=== PATIENT | male | born 1940 | race Caucasian/White ===

== ENCOUNTER 2016-12-21 18:23 | Emergency (ER) | payer OTHER, MEDICAID ==
[~2016-12-21] VITALS: Ht 167.6 cm; Wt 60.8 kg
[2016-12-21 18:31] VITALS: BP_SYST 121
--- NOTE | 2016-12-21 18:31 | NUR ---
Pt in waiting room awaiting available bed. Stable.
[2016-12-21] MEDS ORDERED: DIPH-TET Vacc 0.5 ML VIAL I.M. ONE (19:00)
--- NOTE | 2016-12-21 19:16 | NUR ---
Patient to room 6 from radiology.
--- NOTE | 2016-12-21 19:20 | NUR ---
Patient brought to ER by caregiver s/p mechanical fall with 1 cm laceration to posterior patietal, no bleeding noted now. Patient is wheelchair bound and hx or MR. Patient denies head/neck/chest pain, AAOx2, cooperative, calm, unlabored breathing, lower extremities +1 pitting edema, no signs of acute distress.
[2016-12-21] MEDS ORDERED: BACITRACIN 1 GM OINT TP ONE (19:30)
--- NOTE | 2016-12-21 19:36 | NUR ---
ER RENETTA Prater at bedside for evaluation
[2016-12-21 19:55] LABS: BILIRUBIN,URINE NEGATIVE (NEGATIVE); CLARITY/URINE CLEAR (CLEAR); COLOR,URINE YELLOW (YELLOW); GLUCOSE,URINE NEGATIVE (NEGATIVE); KETONES,URINE NEGATIVE (NEGATIVE); LEUKOCYTE ESTERASE ,URINE NEGATIVE (NEGATIVE); NITRITE, URINE NEGATIVE (NEGATIVE); PH,URINE 6.5 (5.0-8.0); PROTEIN URINE NEGATIVE (NEGATIVE); UROBILINOGEN,URINE 0.2 (0.2-1.0)
[2016-12-21 19:58] LABS: INR 1.1 (0.80-1.20); PROTHROMBIN TIME 11.9 SECS (9.5-12.5)
[2016-12-21 20:06] LABS: BASOPHILS % (AUTO) 0.5 % (0.0-2.0); EOSINOPHILS # (AUTO) 0.1 K/uL (0.0-0.4); EOSINOPHILS % (AUTO) 1.1 % (0.0-4.0); HEMATOCRIT 38.9 % (36-54); HEMOGLOBIN 12.7 g/dL (14.0-18.0); LYMPHOCYTES # (AUTO) 1.7 K/uL (1.0-5.5); LYMPHOCYTES % (AUTO) 27.7 % (20.5-51.5); MEAN CORPUSCULAR HEMOGLOBIN 31 pg (27-31); MEAN CORPUSCULAR HGB CONC 33 % (32-36); MEAN CORPUSCULAR VOLUME 93 fL (79.0-98.0); MONOCYTES # (AUTO) 0.8 K/uL (0.0-1.0); MONOCYTES % (AUTO) 12.5 % (1.7-9.3); NEUTROPHILS # (AUTO) 3.7 K/uL (1.8-7.7); NEUTROPHILS % (AUTO) 58.2 % (40.0-70.0); PLATELET COUNT (AUTO) 212 K/uL (130-430); RED BLOOD CELL COUNT(AUTO) 4.17 MIL/uL (4.2-6.2); RED CELL DISTRIBUTION WIDTH 13.7 % (9.0-15.0); WHITE BLOOD COUNT (AUTO) 6.3 K/uL (4.8-10.8)
[2016-12-21 20:08] LABS: BLOOD, URINE TRACE (NEGATIVE)
[2016-12-21 20:09] LABS: ANION GAP 5 (5-15); CALCIUM 10.7 mg/dL (8.4-11.0); CHLORIDE 107 mmol/L (98-107); CREATININE 1.53 mg/dL (0.55-1.30); GLUCOSE 132 mg/dL (70-99); POTASSIUM 4.4 mmol/L (3.5-5.1); SODIUM SERUM 139 mmol/L (136-145); UREA NITROGEN, BLOOD 31 mg/dL (8-21)
[2016-12-21 20:11] LABS: BACTERIA,URINE FEW /HPF (None Seen); RBC,URINE 0-3 /HPF (0-3); WBC,URINE 0-3 /HPF (0-3)
[2016-12-21 20:12] LABS: MUCUS,URINE None Seen /LPF (None Seen)
[2016-12-21 20:13] LABS: ALANINE AMINOTRANSFERASE 18 U/L (12-78); ALBUMIN 3.3 g/dL (3.4-4.8); ASPARTATE AMINOTRANSFERASE 16 U/L (10-37); TOTAL BILIRUBIN 0.3 mg/dL (0.0-1.0); TOTAL PROTEIN, SERUM 7.7 g/dL (6.4-8.3)
--- NOTE | 2016-12-21 20:15 | NUR ---
Scanner not working for med scan. patient and meds verified.
--- NOTE | 2016-12-21 20:16 | NUR ---
Patient has a 2 cm laceration to posterior scalp. TANK PROCESSOR Josi applied patrick using sterile technique. Edges well approximated. Site cleansed with NS & iodine. Dressing of gauze applied to site. No bleeding noted. Pt tolerated well.
[2016-12-21 20:40] VITALS: BP_SYST 119
--- NOTE | 2016-12-21 20:40 | NUR ---
Patient given written and verbal discharge instructions and verbalizes understanding. ER INDUSTRIAL HYGIENE ENGINEER Josi discussed with patient the results and treatment provided. Patient in stable condition. ID arm band removed. Rx of bacitracin given. Patient educated on pain management and to follow up with PMD. Pain Scale 0/10. Opportunity for questions provided and answered.
== END 2016-12-21 20:40 | disposition home or self-care (01) ==
LOC: SED 18:23
DX: S01.01XA Laceration without foreign body of scalp, initial encounter (principal); I10 Essential (primary) hypertension; M19.90 Unspecified osteoarthritis, unspecified site; H40.9 Unspecified glaucoma; W18.30XA Fall on same level, unspecified, initial encounter; Y93.01 Activity, walking, marching and hiking; Y92.89 Other specified places as the place of occurrence of the external cause; Y99.8 Other external cause status
CPT/HCPCS: 36415; 70450-TC; 71010; 80053; 81000-TC; 84484; 85025; 85610-TC; 85730-TC; 90714; 93005; 99285

== ENCOUNTER 2016-12-28 17:40 | Emergency (ER) | payer OTHER, MEDICAID ==
[~2016-12-28] VITALS: Ht 167.6 cm; Wt 81.6 kg
[2016-12-28 17:55] VITALS: BP_SYST 135
[2016-12-28] MEDS ORDERED: BACITRACIN 1 GM OINT TP ONE (18:00)
[2016-12-28 18:22] VITALS: BP_SYST 132
== END 2016-12-28 18:22 | disposition home or self-care (01) ==
LOC: SED 17:40
DX: S01.01XD Laceration without foreign body of scalp, subsequent encounter (principal); I10 Essential (primary) hypertension; M19.90 Unspecified osteoarthritis, unspecified site; M81.0 Age-related osteoporosis without current pathological fracture; H40.9 Unspecified glaucoma; Z98.890 Other specified postprocedural states; X58.XXXD Exposure to other specified factors, subsequent encounter; Y92.89 Other specified places as the place of occurrence of the external cause; Y99.8 Other external cause status
CPT/HCPCS: 99281

== ENCOUNTER 2017-01-07 07:16 | Inpatient (IN) | payer OTHER, MEDICAID ==
[~2017-01-07] VITALS: Ht 167.6 cm; Wt 61.2 kg
[2017-01-07 07:16] VITALS: BP_SYST 142
[2017-01-07] MEDS ORDERED: BACITRACIN 1 GM OINT TP ONE (07:45)
[2017-01-07] MEDS ORDERED: LIDOCAINE/EPI 1% 1:100000 20 ML VIAL IJ ONE (07:45)
[2017-01-07] MEDS ORDERED: LIDOCAINE/EPI 2% 1:100000 20 ML VIAL INJ ONE (08:16)
[2017-01-07 09:00] LABS: BASOPHILS % (AUTO) 0.5 % (0.0-2.0); EOSINOPHILS # (AUTO) 0.1 K/uL (0.0-0.4); EOSINOPHILS % (AUTO) 0.8 % (0.0-4.0); HEMATOCRIT 39.3 % (36-54); HEMOGLOBIN 13.1 g/dL (14.0-18.0); LYMPHOCYTES # (AUTO) 1.7 K/uL (1.0-5.5); LYMPHOCYTES % (AUTO) 24.7 % (20.5-51.5); MEAN CORPUSCULAR HEMOGLOBIN 31 pg (27-31); MEAN CORPUSCULAR HGB CONC 33 % (32-36); MEAN CORPUSCULAR VOLUME 92 fL (79.0-98.0); MONOCYTES # (AUTO) 0.8 K/uL (0.0-1.0); MONOCYTES % (AUTO) 11.6 % (1.7-9.3); NEUTROPHILS # (AUTO) 4.3 K/uL (1.8-7.7); NEUTROPHILS % (AUTO) 62.4 % (40.0-70.0); PLATELET COUNT (AUTO) 189 K/uL (130-430); RED BLOOD CELL COUNT(AUTO) 4.25 MIL/uL (4.2-6.2); RED CELL DISTRIBUTION WIDTH 13.6 % (9.0-15.0); WHITE BLOOD COUNT (AUTO) 6.9 K/uL (4.8-10.8)
[2017-01-07 09:25] LABS: ANION GAP 3 (5-15); CALCIUM 10.3 mg/dL (8.4-11.0); CHLORIDE 107 mmol/L (98-107); CREATININE 1.48 mg/dL (0.55-1.30); GLUCOSE 78 mg/dL (70-99); SODIUM SERUM 137 mmol/L (136-145); UREA NITROGEN, BLOOD 29 mg/dL (8-21)
[2017-01-07 09:27] LABS: INR 1.1 (0.80-1.20); PROTHROMBIN TIME 11.9 SECS (9.5-12.5)
[2017-01-07 09:29] LABS: ALANINE AMINOTRANSFERASE 16 U/L (12-78); ALBUMIN 3.1 g/dL (3.4-4.8); ASPARTATE AMINOTRANSFERASE 13 U/L (10-37); TOTAL BILIRUBIN 0.3 mg/dL (0.0-1.0)
[2017-01-07] MEDS ORDERED: LIDOCAINE/EPI 2% 1:100000 20 ML VIAL IJ ONE (09:30)
[2017-01-07 11:00] VITALS: BP_SYST 148
[2017-01-07 12:22] VITALS: BP_SYST 148
[2017-01-07 16:00] VITALS: BP_SYST 140
[2017-01-07 19:30] VITALS: BP_SYST 144
[2017-01-07] MEDS ORDERED: TRAM50TA92 PO (19:43)
[2017-01-07] MEDS ORDERED: POTA-118 PO (19:51)
[2017-01-07] MEDS ORDERED: RISP0.2515 PO (19:51)
[2017-01-07] MEDS ORDERED: DOCU-144 PO (19:51)
[2017-01-07] MEDS ORDERED: BACL10TA PO (19:51)
[2017-01-07] MEDS ORDERED: OMEP20CA10 PO (20:01)
[2017-01-07] MEDS ORDERED: FURO-150 PO (20:01)
[2017-01-07] MEDS ORDERED: RISP0.253 PO (23:05)
[2017-01-08] VITALS: BP_SYST 158
[2017-01-08 04:33] VITALS: BP_SYST 140
[2017-01-08 07:20] LABS: BASOPHILS % (AUTO) 0.4 % (0.0-2.0); EOSINOPHILS # (AUTO) 0.1 K/uL (0.0-0.4); EOSINOPHILS % (AUTO) 1.2 % (0.0-4.0); HEMATOCRIT 38.7 % (36-54); HEMOGLOBIN 13.1 g/dL (14.0-18.0); LYMPHOCYTES % (AUTO) 34.8 % (20.5-51.5); MEAN CORPUSCULAR HEMOGLOBIN 31 pg (27-31); MEAN CORPUSCULAR HGB CONC 34 % (32-36); MEAN CORPUSCULAR VOLUME 92 fL (79.0-98.0); MONOCYTES # (AUTO) 0.7 K/uL (0.0-1.0); NEUTROPHILS % (AUTO) 50.6 % (40.0-70.0); PLATELET COUNT (AUTO) 190 K/uL (130-430); RED BLOOD CELL COUNT(AUTO) 4.23 MIL/uL (4.2-6.2); RED CELL DISTRIBUTION WIDTH 13.8 % (9.0-15.0); WHITE BLOOD COUNT (AUTO) 5.8 K/uL (4.8-10.8)
[2017-01-08 08:00] VITALS: BP_SYST 171
[2017-01-08 08:07] LABS: POTASSIUM 4.1 mmol/L (3.5-5.1); SODIUM SERUM 137 mmol/L (136-145)
[2017-01-08 08:08] LABS: ALANINE AMINOTRANSFERASE 16 U/L (12-78); ANION GAP 5 (5-15); ASPARTATE AMINOTRANSFERASE 16 U/L (10-37); CALCIUM 10.4 mg/dL (8.4-11.0); CHLORIDE 106 mmol/L (98-107); CREATININE 1.52 mg/dL (0.55-1.30); GLUCOSE 90 mg/dL (70-99); TOTAL BILIRUBIN 0.4 mg/dL (0.0-1.0); TOTAL PROTEIN, SERUM 7.3 g/dL (6.4-8.3); UREA NITROGEN, BLOOD 33 mg/dL (8-21)
[2017-01-08] MEDS: traMADol HCL HCL 50 MG TABLET (ULTRAM) PO SCH ×3 (09:02→21:18)
[2017-01-08] MEDS: BACLOFEN 10 MG TABLET PO SCH ×3 (09:02→21:16)
[2017-01-08 12:07] VITALS: BP_SYST 151
[2017-01-08 16:43] VITALS: BP_SYST 150
[2017-01-08 20:02] VITALS: BP_SYST 144
[2017-01-08] MEDS ORDERED: traMADol HCL HCL 50 MG TABLET (ULTRAM) PO SCH ×2 (21:00)
[2017-01-08] MEDS ORDERED: risperiDONE 0.25 MG TABLET (RisperDAL) PO SCH ×2 (21:00)
[2017-01-08] MEDS: DOCUSATE SODIUM 100 MG CAPSULE PO SCH (21:16)
[2017-01-08] MEDS: risperiDONE 0.25 MG TABLET (RisperDAL) PO SCH (21:16)
[2017-01-09] VITALS (7 sets, daily range): BP systolic 130–167
[2017-01-09] MEDS: OMEPRAZOLE 20 MG CAPSULE.DR (PriLOSEC) PO SCH (09:51)
[2017-01-09] MEDS: traMADol HCL HCL 50 MG TABLET (ULTRAM) PO SCH ×3 (09:53→21:48)
[2017-01-09] MEDS: POTASSIUM CHLORIDE 10 MEQ TAB.PRT.SR PO SCH (09:54)
[2017-01-09] MEDS: FUROSEMIDE 20 MG TABLET PO SCH (09:54)
[2017-01-09] MEDS: DOCUSATE SODIUM 100 MG CAPSULE PO SCH ×2 (09:54→21:47)
[2017-01-09] MEDS: BACLOFEN 10 MG TABLET PO SCH ×3 (09:54→21:47)
[2017-01-09] MEDS ORDERED: METOPROLOL TARTRATE 25 MG TABLET PO ONE (13:45)
[2017-01-09] MEDS: risperiDONE 0.25 MG TABLET (RisperDAL) PO SCH (22:21)
[2017-01-09] MEDS: METOPROLOL TARTRATE 25 MG TABLET PO SCH (22:22)
[2017-01-10] VITALS (7 sets, daily range): BP systolic 133–171
[2017-01-10] MEDS: MORPHINE 2 MG/ML INJ. SYRINGE IVP PRN ×3 (02:28→19:59)
[2017-01-10 06:28] LABS: BASOPHILS # (AUTO) 0.1 K/uL (0.0-0.2); BASOPHILS % (AUTO) 1.2 % (0.0-2.0); EOSINOPHILS # (AUTO) 0.1 K/uL (0.0-0.4); EOSINOPHILS % (AUTO) 0.7 % (0.0-4.0); HEMOGLOBIN 14.1 g/dL (14.0-18.0); LYMPHOCYTES # (AUTO) 1.7 K/uL (1.0-5.5); LYMPHOCYTES % (AUTO) 20.2 % (20.5-51.5); MEAN CORPUSCULAR HEMOGLOBIN 30 pg (27-31); MEAN CORPUSCULAR HGB CONC 32 % (32-36); MEAN CORPUSCULAR VOLUME 94 fL (79.0-98.0); MONOCYTES # (AUTO) 1.2 K/uL (0.0-1.0); MONOCYTES % (AUTO) 14.2 % (1.7-9.3); NEUTROPHILS # (AUTO) 5.4 K/uL (1.8-7.7); NEUTROPHILS % (AUTO) 63.7 % (40.0-70.0); PLATELET COUNT (AUTO) 193 K/uL (130-430); RED CELL DISTRIBUTION WIDTH 13.9 % (9.0-15.0); WHITE BLOOD COUNT (AUTO) 8.5 K/uL (4.8-10.8)
[2017-01-10 07:19] LABS: ALANINE AMINOTRANSFERASE 17 U/L (12-78); ANION GAP 5 (5-15); ASPARTATE AMINOTRANSFERASE 14 U/L (10-37); CALCIUM 10.7 mg/dL (8.4-11.0); CHLORIDE 106 mmol/L (98-107); CREATININE 1.34 mg/dL (0.55-1.30); GLUCOSE 96 mg/dL (70-99); POTASSIUM 4.3 mmol/L (3.5-5.1); SODIUM SERUM 136 mmol/L (136-145); THYROID STIMULATING HORMONE 3.27 uIu/mL (0.34-4.82); TOTAL BILIRUBIN 0.6 mg/dL (0.0-1.0); TOTAL PROTEIN, SERUM 7.9 g/dL (6.4-8.3); UREA NITROGEN, BLOOD 31 mg/dL (8-21)
[2017-01-10] MEDS: DOCUSATE SODIUM 100 MG CAPSULE PO SCH ×2 (08:32→20:50)
[2017-01-10] MEDS: BACLOFEN 10 MG TABLET PO SCH ×3 (08:32→20:49)
[2017-01-10] MEDS: traMADol HCL HCL 50 MG TABLET (ULTRAM) PO SCH ×3 (08:32→20:52)
[2017-01-10] MEDS: POTASSIUM CHLORIDE 10 MEQ TAB.PRT.SR PO SCH (08:32)
[2017-01-10] MEDS: OMEPRAZOLE 20 MG CAPSULE.DR (PriLOSEC) PO SCH (08:32)
[2017-01-10] MEDS: METOPROLOL TARTRATE 25 MG TABLET PO SCH ×2 (08:33→20:51)
[2017-01-10] MEDS: FUROSEMIDE 20 MG TABLET PO SCH (08:33)
[2017-01-10] MEDS: risperiDONE 0.25 MG TABLET (RisperDAL) PO SCH (20:51)
[2017-01-10] MEDS ORDERED: LORazepam 1 MG TABLET PO PRN (23:30)
[2017-01-11 00:10] VITALS: BP_SYST 135
[2017-01-11] MEDS: MORPHINE 2 MG/ML INJ. SYRINGE IVP PRN (00:23)
[2017-01-11 03:56] VITALS: BP_SYST 126
[2017-01-11] MEDS: FUROSEMIDE 20 MG TABLET PO SCH (10:28)
[2017-01-11] MEDS: BACLOFEN 10 MG TABLET PO SCH ×3 (10:29→21:12)
[2017-01-11] MEDS: OMEPRAZOLE 20 MG CAPSULE.DR (PriLOSEC) PO SCH (10:29)
[2017-01-11] MEDS: DOCUSATE SODIUM 100 MG CAPSULE PO SCH ×2 (10:29→21:12)
[2017-01-11] MEDS: METOPROLOL TARTRATE 25 MG TABLET PO SCH ×2 (10:29→21:00)
[2017-01-11 12:14] VITALS: BP_SYST 144
[2017-01-11] MEDS: traMADol HCL HCL 50 MG TABLET (ULTRAM) PO SCH ×3 (16:02→21:12)
[2017-01-11] MEDS: POTASSIUM CHLORIDE 10 MEQ TAB.PRT.SR PO SCH (16:06)
[2017-01-11 16:43] VITALS: BP_SYST 140
[2017-01-11 21:05] VITALS: BP_SYST 96
[2017-01-11] MEDS: risperiDONE 0.25 MG TABLET (RisperDAL) PO SCH (21:12)
[2017-01-12] VITALS: BP_SYST 96
[2017-01-12 04:26] VITALS: BP_SYST 100
[2017-01-12 07:21] LABS: BASOPHILS % (AUTO) 0.4 % (0.0-2.0); EOSINOPHILS % (AUTO) 0.2 % (0.0-4.0); HEMATOCRIT 44.4 % (36-54); HEMOGLOBIN 14.2 g/dL (14.0-18.0); LYMPHOCYTES # (AUTO) 1.8 K/uL (1.0-5.5); MEAN CORPUSCULAR HEMOGLOBIN 30 pg (27-31); MEAN CORPUSCULAR HGB CONC 32 % (32-36); MEAN CORPUSCULAR VOLUME 94 fL (79.0-98.0); MONOCYTES # (AUTO) 1.4 K/uL (0.0-1.0); MONOCYTES % (AUTO) 12.9 % (1.7-9.3); NEUTROPHILS # (AUTO) 7.9 K/uL (1.8-7.7); NEUTROPHILS % (AUTO) 70.5 % (40.0-70.0); PLATELET COUNT (AUTO) 205 K/uL (130-430); RED BLOOD CELL COUNT(AUTO) 4.75 MIL/uL (4.2-6.2); RED CELL DISTRIBUTION WIDTH 13.8 % (9.0-15.0); WHITE BLOOD COUNT (AUTO) 11.1 K/uL (4.8-10.8)
[2017-01-12 07:46] LABS: ALANINE AMINOTRANSFERASE 14 U/L (12-78); ALBUMIN 2.8 g/dL (3.4-4.8); ANION GAP 6 (5-15); ASPARTATE AMINOTRANSFERASE 19 U/L (10-37); CALCIUM 10.6 mg/dL (8.4-11.0); CHLORIDE 108 mmol/L (98-107); CREATININE 1.89 mg/dL (0.55-1.30); GLUCOSE 111 mg/dL (70-99); POTASSIUM 4.2 mmol/L (3.5-5.1); SODIUM SERUM 138 mmol/L (136-145); TOTAL BILIRUBIN 0.8 mg/dL (0.0-1.0); UREA NITROGEN, BLOOD 55 mg/dL (8-21)
[2017-01-12 08:12] VITALS: BP_SYST 114
[2017-01-12] MEDS: OMEPRAZOLE 20 MG CAPSULE.DR (PriLOSEC) PO SCH (08:26)
[2017-01-12] MEDS: BACLOFEN 10 MG TABLET PO SCH ×3 (08:26→20:39)
[2017-01-12] MEDS: POTASSIUM CHLORIDE 10 MEQ TAB.PRT.SR PO SCH (08:26)
[2017-01-12] MEDS: FUROSEMIDE 20 MG TABLET PO SCH (08:26)
[2017-01-12] MEDS: traMADol HCL HCL 50 MG TABLET (ULTRAM) PO SCH ×3 (08:26→20:39)
[2017-01-12] MEDS: DOCUSATE SODIUM 100 MG CAPSULE PO SCH ×2 (08:26→20:39)
[2017-01-12] MEDS: METOPROLOL TARTRATE 25 MG TABLET PO SCH ×2 (08:27→20:41)
[2017-01-12 11:34] VITALS: BP_SYST 110
[2017-01-12 15:55] VITALS: BP_SYST 119
[2017-01-12 20:00] VITALS: BP_SYST 98
[2017-01-12] MEDS: risperiDONE 0.25 MG TABLET (RisperDAL) PO SCH (20:42)
[2017-01-13] VITALS: BP_SYST 105
[2017-01-13] MEDS: MORPHINE 2 MG/ML INJ. SYRINGE IVP PRN ×4 (00:41→23:17)
[2017-01-13 05:03] VITALS: BP_SYST 115
[2017-01-13 08:12] VITALS: BP_SYST 113
[2017-01-13] MEDS: DOCUSATE SODIUM 100 MG CAPSULE PO SCH ×2 (09:44→20:46)
[2017-01-13] MEDS: OMEPRAZOLE 20 MG CAPSULE.DR (PriLOSEC) PO SCH (09:44)
[2017-01-13] MEDS: POTASSIUM CHLORIDE 10 MEQ TAB.PRT.SR PO SCH (09:44)
[2017-01-13] MEDS: BACLOFEN 10 MG TABLET PO SCH ×3 (09:45→20:46)
[2017-01-13] MEDS: METOPROLOL TARTRATE 25 MG TABLET PO SCH ×2 (09:45→20:51)
[2017-01-13] MEDS: traMADol HCL HCL 50 MG TABLET (ULTRAM) PO SCH ×3 (09:46→20:46)
[2017-01-13] MEDS: FUROSEMIDE 20 MG TABLET PO SCH (09:46)
[2017-01-13 12:12] VITALS: BP_SYST 110
[2017-01-13] MEDS ORDERED: LORazepam 1 MG TABLET PO PRN (15:00)
[2017-01-13 16:25] VITALS: BP_SYST 100
[2017-01-14] VITALS (7 sets, daily range): BP systolic 115–153
[2017-01-14] MEDS: MORPHINE 2 MG/ML INJ. SYRINGE IVP PRN (03:48)
[2017-01-14] MEDS: FUROSEMIDE 20 MG TABLET PO SCH (09:08)
[2017-01-14] MEDS: POTASSIUM CHLORIDE 10 MEQ TAB.PRT.SR PO SCH (09:08)
[2017-01-14] MEDS: DOCUSATE SODIUM 100 MG CAPSULE PO SCH ×2 (09:08→20:51)
[2017-01-14] MEDS: BACLOFEN 10 MG TABLET PO SCH ×3 (09:08→20:51)
[2017-01-14] MEDS: OMEPRAZOLE 20 MG CAPSULE.DR (PriLOSEC) PO SCH (09:09)
[2017-01-14] MEDS: METOPROLOL TARTRATE 25 MG TABLET PO SCH ×2 (09:09→20:52)
[2017-01-14] MEDS: traMADol HCL HCL 50 MG TABLET (ULTRAM) PO SCH ×3 (09:11→20:51)
[2017-01-14] MEDS: LATANOPROST 2.5 ML DROPS (XALATAN) OP SCH (20:51)
[2017-01-15] MEDS: MORPHINE 2 MG/ML INJ. SYRINGE IVP PRN ×2 (01:51→07:46)
[2017-01-15 03:41] VITALS: BP_SYST 124
[2017-01-15 08:00] VITALS: BP_SYST 128
[2017-01-15] MEDS: BACLOFEN 10 MG TABLET PO SCH ×2 (08:49→14:43)
[2017-01-15] MEDS: traMADol HCL HCL 50 MG TABLET (ULTRAM) PO SCH ×2 (08:49→14:43)
[2017-01-15] MEDS: OMEPRAZOLE 20 MG CAPSULE.DR (PriLOSEC) PO SCH (08:49)
[2017-01-15] MEDS: POTASSIUM CHLORIDE 10 MEQ TAB.PRT.SR PO SCH (08:49)
[2017-01-15] MEDS: DOCUSATE SODIUM 100 MG CAPSULE PO SCH (08:49)
[2017-01-15] MEDS: FUROSEMIDE 20 MG TABLET PO SCH (08:49)
[2017-01-15] MEDS: METOPROLOL TARTRATE 25 MG TABLET PO SCH (08:50)
[2017-01-15 12:04] VITALS: BP_SYST 129
[2017-01-15 16:21] VITALS: BP_SYST 132
[2017-01-15 17:24] VITALS: BP_SYST 138
[2017-01-15] MEDS: LATANOPROST 2.5 ML DROPS (XALATAN) OP SCH (18:00)
== END 2017-01-15 22:06 | DRG 683 ==
LOC: SED 07:16 → STU 08:57 → SMU 01-10 18:08
PROVIDERS: ADMIT Internal Medicine; ATTEND Internal Medicine
PROC: 08QPXZZ Repair Left Upper Eyelid, External Approach (ICD-10-PCS; principal; 2017-01-07)
DX: N17.9 Acute kidney failure, unspecified (principal); E44.1 Mild protein-calorie malnutrition; M48.02 Spinal stenosis, cervical region; S01.112A Laceration without foreign body of left eyelid and periocular area, initial encounter; N28.9 Disorder of kidney and ureter, unspecified; I10 Essential (primary) hypertension; H40.9 Unspecified glaucoma; F29 Unspecified psychosis not due to a substance or known physiological condition; M48.06 Spinal stenosis, lumbar region; M19.90 Unspecified osteoarthritis, unspecified site; F71 Moderate intellectual disabilities; M81.0 Age-related osteoporosis without current pathological fracture; R29.6 Repeated falls; Z87.891 Personal history of nicotine dependence; W18.39XA Other fall on same level, initial encounter; Y93.01 Activity, walking, marching and hiking; Y92.098 Other place in other non-institutional residence as the place of occurrence of the external cause; Y99.8 Other external cause status
CPT/HCPCS: 36415; 70450-TC; 71250-TC; 72040-TC; 72125-TC; 72131; 72141; 72148; 73030; 73590-TC; 80053; 82607; 83880; 84443-TC; 84484; 85025; 85610-TC; 85730-TC; 87081; 93005; 93971; 97110-GP; 97530-GP; 99285; J2270